=== PATIENT | male | born 1970 | race African-American/Black ===

== ENCOUNTER 2020-01-11 13:25 | Emergency (ER) | payer OTHER, SELFPAY ==
[2020-01-11 13:41] VITALS: BP 149/70; PULSE 83; RESP 16; TEMP 35.6; O2SAT 99
[2020-01-11 14:25] VITALS: BP 141/72; PULSE 88; RESP 18; TEMP 36.7; O2SAT 100
[2020-01-11 15:13] LABS: Basophils Percent Auto 0.3 % (0.2-1.2); Eosinophils Absolute Auto 0.1 K/mm3 (0-0.3); Eosinophils Percent Auto 1.8 % (0-4.4); Hemoglobin 14.5 g/dL (14.0-18.0); Immature Granulocyte Absolute 0.02 K/mm3 (0.00-0.031); Immature Granulocyte Percent A 0.3 % (0-0.5); Lymphocytes Absolute Auto 3.07 K/mm3 (0.9-3.2); Lymphocytes Percent Auto 42.5 % (18.3-44.2); Mean Corpuscular Volume 85.1 fl (80-100); Mean Platelet Volume 10.2 fl (7.4-10.4); Monocytes Absolute Auto 0.5 K/mm3 (0.1-0.6); Monocytes Percent Auto 6.2 % (2.6-8.5); Neutrophils Absolute Auto 3.5 K/mm3 (1.3-6.7); Neutrophils Percent Auto 48.9 % (45.5-73.1); Platelet Count Result 244 k/mm3 (150-375); Red Blood Count 5.17 M/mm3 (4.6-6.20); Red Cell Distribution Width 13.4 % (11.5-14.5); White Blood Count 7.2 K/mm3 (4.5-10.0)
[2020-01-11 15:24] LABS: Atypical Lymphocytes Present; Platelet Estimate Adequate (Adequate)
[2020-01-11 15:25] LABS: Alanine Aminotransferase 33 U/L (4-50); Albumin Level 4.6 g/dL (3.5-5.1); Alkaline Phosphatase 94 U/L (38-126); Anion Gap 6 mmol/L (8-16); Aspartate Amino Transferase 27 U/L (17-59); Bilirubin,Total 0.4 mg/dL (0.2-1.3); Blood Urea Nitrogen 14 mg/dL (9-20); Calcium 9.8 mg/dL (8.4-10.2); Carbon Dioxide 28 mmol/L (22-30); Chloride 103 mmol/L (98-107); Estimated CRCL calculation 69 ml/min; Estimated Glomerular Filt Rate > 60; Glucose 106 mg/dL (75-110); Potassium 4.1 mmol/L (3.4-5.0); Sodium 137 mmol/L (137-145)
--- NOTE | 2020-01-11 15:38 | ED.GENADULT ---
HPI - General Adult General Chief complaint: Unspecified Stated complaint: fissure Time Seen by Provider: 01/11/20 14:02 Source: patient Mode of arrival: ambulatory Limitations: no limitations History of Present Illness HPI narrative: Patient is a 49-year-old male who presents for evaluation of rectal pain noting history of fissure patient is seeing specialist for this with no further treatments patient notes that is coming gone over the last several months had CAT scan imaging and blood work yesterday by primary care which she states were normal patient on arrival notes pain is worse with bowel movements denies any rectal bleeding fever chills nausea vomiting Related Data Allergies Allergy/AdvReac Type Severity Reaction Status Date / Time No Known Allergies Allergy Verified 01/11/20 08:35 Review of Systems Review of Systems: All systems reviewed & are unremarkable except as noted in HPI and below PMFSH Past Medical History Medical History Diabetes Hyperlipemia Surgical History Surgical History History of lipoma Family History Family History (Updated 06/10/17 @ 09:57 by DOCTOR UNKNOWN) Other Cerebrovascular accident Hypertension Social History Social History Smoking packs per day: 1 Smoking cigarettes per day: 20.0 Years smoked: 15 Smoking pack-years: 15.00 Smoking status: Current every day smoker Alcohol intake: never Additional occupation/education comments: [employer] Exam Narrative: Exam Narrative: GENERAL: Well-appearing, well-nourished, and in no acute distress. HEAD: Normocephalic, atraumatic. EYES: PERRLA and EOMI. ENT: Nares clear, no rhinorrhea or epistaxis. Mucous membranes moist. CHEST: Clear to auscultation. No respiratory distress. No wheezes rales or rhonchi HEART: Regular rate and rhythm. No murmur heard. Normal peripheral pulses. ABDOMEN: Soft, nontender, nondistended RECTAL: Patient with tenderness on the rectal exam with a resolved hemorrhoid with no bleeding or obvious fissures or other abnormalities SKIN: Warm, dry, no rash. NEURO: No focal deficits. Alert and oriented x3. PSYCH: Normal mood and affect. Course Course Emergency Course: Patient in the room in no distress will follow with primary care and gastroenterology for further evaluation Vital Signs Vital signs: Vital Signs Temperature 96.1 F L 01/11/20 13:41 Pulse Rate 83 01/11/20 13:41 Respiratory Rate 16 01/11/20 13:41 Blood Pressure 149/70 H 01/11/20 13:41 Pulse Oximetry 99 01/11/20 13:41 Temperature 98.0 F 01/11/20 14:25 Pulse Rate 88 01/11/20 14:25 Respiratory Rate 18 01/11/20 14:25 Blood Pressure 141/72 H 01/11/20 14:25 Pulse Oximetry 100 01/11/20 14:25 Medical Decision Making MDM Narrative Medical decision making narrative: Patient in the room at this time aware of case findings treatment plan and diagnosis agreeing to follow-up with gastroenterology given reasons to return Vital Signs Vital Signs: Vital Signs Temperature 96.1 F L 01/11/20 13:41 Pulse Rate 83 01/11/20 13:41 Respiratory Rate 16 01/11/20 13:41 Blood Pressure 149/70 H 01/11/20 13:41 Pulse Oximetry 99 01/11/20 13:41 Temperature 98.0 F 01/11/20 14:25 Pulse Rate 88 01/11/20 14:25 Respiratory Rate 18 01/11/20 14:25 Blood Pressure 141/72 H 01/11/20 14:25 Pulse Oximetry 100 01/11/20 14:25 Lab Data Result diagrams: 01/11/20 15:04 01/11/20 15:04 Labs: Lab Results 01/11/20 01/11/20 Range/Units 15:04 15:04 WBC 7.2 (4.5-10.0) K/mm3 RBC 5.17 (4.6-6.20) M/mm3 Hgb 14.5 (14.0-18.0) g/dL Hct 44.0 (42.0-52.0) % MCV 85.1 (80-100) fl MCH 28.0 (26-34) pg MCHC 33.0 (32-36) g/dl RDW 13.4 (11.5-14.5) % Plt Count 244 (150-375) k/mm3
[2020-01-11 15:48] VITALS: BP 140/68; PULSE 78; RESP 18; O2SAT 99
== END 2020-01-11 15:49 | disposition home or self-care (01) ==
PROVIDERS: Emergency Medicine Emergency Medical Services; Emergency Provider Emergency Medicine; PCP Emergency Medicine
DX: K62.89 Other specified diseases of anus and rectum (principal); F17.210 Nicotine dependence, cigarettes, uncomplicated; E11.9 Type 2 diabetes mellitus without complications; E78.5 Hyperlipidemia, unspecified
CPT/HCPCS: 36415; 80053; 85025; 99283